=== PATIENT | male | born 1940 | race Caucasian/White ===

== ENCOUNTER 2020-05-23 07:00 | Day surgery (SDC) | payer MEDICARE, BC ==
[~2020-05-23] VITALS: Ht 172.7 cm; Wt 79.1 kg
[2020-05-23] VITALS (7 sets, daily range): BP systolic 93–114; BP diastolic 65–79; PULSE 59–65; TEMP 97.4
[~2020-05-23 07:00] MED LIST: DILTIAZEM HCL30 MG PO; EPA1000 MG PO; LUMIGAN EYE GTTS OU; TRUSOPT 5 ML5 ML OP
[2020-05-23] MEDS ORDERED: SYNTHROID 0.0.025 MG PO (07:45)
[2020-05-23] MEDS ORDERED: ASPIRIN E.C. 8181 MG PO (07:45)
[2020-05-23] MEDS ORDERED: MASON NATURAL2000 IU PO (07:45)
[2020-05-23] MEDS ORDERED: BETIMOL 10 ML10 ML OU (07:56)
[2020-05-23 08:12] LABS: HEMATOCRIT 51.1 % (42.0-52.0); HEMOGLOBIN 16.6 g/dl (13.5-18.0); MEAN CELL VOLUME 92 fl (80.0-100.0); MEAN CORPUSCULAR HEMOGLOBIN 30 pg (27.0-31.0); MEAN CORPUSCULAR HGB CONC 33 g/dl (33.0-37.0); MEAN PLATELET VOLUME 10.2 fl (7.4-10.4); PLATELET COUNT 234 K/mm3 (130-400); RED BLOOD COUNT 5.56 M/mm3 (4.20-5.60); REDCELL DISTRIBUTION WIDTH-CV 13.3 % (11.5-14.5)
[2020-05-23 08:20] LABS: INR 1.1 (0.8-3.0); PROTHROMBIN TIME 12.1 SECONDS (9.7-12.8)
[2020-05-23 08:23] LABS: CALCIUM 9.3 mg/dL (8.4-10.2); CREATININE, serum 1.24 (0.66-1.25); POTASSIUM 4.2 mmol/L (3.4-5.0)
--- NOTE | 2020-05-23 08:30 | NUR ---
BPs checked x2 on rt arm, and once on left arm with SBP readings in the 90s on each read. Dr. Jones aware, and orders for IVF to be started with 250ml bolus. Pt assymptomatic, denies dizziness, lightheadedness, and gait has been steady.
--- NOTE | 2020-05-23 09:04 | NUR ---
SEE MERGE DOCUMENTATION FOR MEDICATION ADMINISTRATION TIMES AND INTRA/POST PROCEDURE SEDATION ASSESSMENTS.
[2020-05-23] MEDS ORDERED: CEPHALEXIN500 M1 PO (10:52)
--- NOTE | 2020-05-23 11:40 | NUR ---
DC instructions reviewed with pt and . Both express understanding. Pt statse he is feeling better following gen change. He has been in paced rhythm on director cardiac since return to [place]. Dressing remains clean, dry and intact. Ice has been applied to site since return from procedure. Pt is steady on his feet. Has had PO fluids without issue, denied desire to eat at this time. IV DC'd with catheter intact.
== END 2020-05-23 11:45 | disposition home or self-care (01) ==
LOC: COL.CAR 07:00
PROVIDERS: Internal Medicine Cardiovascular Disease
DX: Z45.010 Encounter for checking and testing of cardiac pacemaker pulse generator [battery] (principal); I49.5 Sick sinus syndrome; R73.03 Prediabetes; J45.909 Unspecified asthma, uncomplicated; E78.5 Hyperlipidemia, unspecified; I10 Essential (primary) hypertension; Z88.8 Allergy status to other drugs, medicaments and biological substances; Z20.822 Contact with and (suspected) exposure to COVID-19
CPT/HCPCS: C1785; J0690; J2250; J3010; J7030